=== PATIENT | female | born 1965 | race Caucasian/White ===

== ENCOUNTER → 2016-12-22 | Outpatient (CLI) | payer BC ==
--- NOTE | 2016-12-23 09:19 | MM ---
Reason for exam: screening (asymptomatic). Last mammogram was performed 1 year and 2 months ago. History: Patient is postmenopausal. Physical Findings: A clinical breast exam by your physician is recommended on an annual basis and results should be correlated with mammographic findings. MG Screening Mammo w CAD Bilateral CC and MLO view(s) were taken. Prior study comparison: October 22, 2015, bilateral MG screening mammo w CAD. September 25, 2014, bilateral MG screening mammo w CAD. September 05, 2013, bilateral digital screening mammo w/CAD. There are scattered fibroglandular densities. Finding: There are typically benign round calcifications in both breasts. There is no discrete abnormality. ASSESSMENT: Benign, BI-RAD 2 RECOMMENDATION: Routine screening mammogram of both breasts in 1 year.
== END | disposition home or self-care (01) ==
LOC: RADMAMWWP 09:25
PROVIDERS: ATTEND Obstetrics & Gynecology
DX: Z12.31 Encounter for screening mammogram for malignant neoplasm of breast (principal)

== ENCOUNTER → 2017-02-22 | Outpatient (CLI) | payer BC ==
--- NOTE | 2017-02-22 11:03 | XR ---
EXAMINATION TYPE: XR lumbar spine 2 or 3V DATE OF EXAM: 02/22/2017 CLINICAL HISTORY: Bilateral lower extremity paresthesias and back pain. TECHNIQUE: Frontal and lateral images of the lumbar spine were obtained COMPARISON: None FINDINGS: There are 5 lumbar type vertebral bodies identified. Facet arthropathy is seen bilaterall y at L3-L4, L4-5, and greatest at L5-S1. Although oblique images were not obtained there appears to b e at least mild neural foraminal narrowing L4-L5 and L5-S1 on the lateral image. Small anterior osteo phytes are noted. Calcific atheromatous changes are seen of the abdominal aorta and its branches. Mild anterior downsloping of the T12 and L1 vertebral bodies is thought to be attributed to patient p ositioning and angulation. Minimal intervertebral disc space narrowing is seen at L1-L2 and L2-L3. T he overlying soft tissue appears unremarkable. IMPRESSION: Multilevel facet arthropathy creating at least mild bilateral neural foraminal narrowing at L3-L4 and L4-5.
== END | disposition home or self-care (01) ==
LOC: RADXRMAIN 09:05
PROVIDERS: ATTEND Family Medicine
DX: M99.73 Connective tissue and disc stenosis of intervertebral foramina of lumbar region (principal); M46.06 Spinal enthesopathy, lumbar region
CPT/HCPCS: 72100

== ENCOUNTER → 2018-02-03 | Outpatient (CLI) | payer BC ==
--- NOTE | 2018-02-09 09:58 | MM ---
Reason for exam: screening (asymptomatic). Last mammogram was performed 1 year and 1 month ago. History: Patient is postmenopausal. Physical Findings: A clinical breast exam by your physician is recommended on an annual basis and results should be correlated with mammographic findings. MG Screening Mammo w CAD Bilateral CC and MLO view(s) were taken. Prior study comparison: December 22, 2016, bilateral MG screening mammo w CAD. October 22, 2015, bilateral MG screening mammo w CAD. There are scattered fibroglandular densities. There is chronic nodularity in the right breast. No significant changes when compared with prior studies. ASSESSMENT: Benign, BI-RAD 2 RECOMMENDATION: Routine screening mammogram of both breasts in 1 year.
== END | disposition home or self-care (01) ==
LOC: RADMAMWWP 14:42
PROVIDERS: ATTEND Obstetrics & Gynecology
DX: Z12.31 Encounter for screening mammogram for malignant neoplasm of breast (principal)
CPT/HCPCS: 77067

== ENCOUNTER → 2019-08-08 | Outpatient (CLI) | payer OTHER ==
--- NOTE | 2019-08-09 13:50 | MM ---
Reason for exam: screening (asymptomatic). Last mammogram was performed 1 year and 6 months ago. History: Patient is postmenopausal. Physical Findings: A clinical breast exam by your physician is recommended on an annual basis and results should be correlated with mammographic findings. MG Screening Mammo w CAD Bilateral CC and MLO view(s) were taken. Prior study comparison: February 03, 2018, bilateral MG screening mammo w CAD. December 22, 2016, bilateral MG screening mammo w CAD. There are scattered fibroglandular densities. Benign appearing bilateral calcifications. No suspicious abnormality. No significant changes when compared with prior studies. ASSESSMENT: Negative, BI-RAD 1 RECOMMENDATION: Routine screening mammogram of both breasts in 1 year.
== END | disposition home or self-care (01) ==
LOC: RADMAMWWP 10:46
PROVIDERS: ATTEND Obstetrics & Gynecology
DX: Z12.31 Encounter for screening mammogram for malignant neoplasm of breast (principal)
CPT/HCPCS: 77067

== ENCOUNTER 2020-06-20 08:13 | Emergency (ER) | payer OTHER ==
[2020-06-20 08:22] VITALS: RESP 18
[2020-06-20] MEDS ORDERED: ASPIRIN 81 MG PO STA (08:30)
[2020-06-20] MEDS ORDERED: NITROGLYCERIN SL TABS 0.4 MG TAB SUBLINGUAL STA ×2 (08:30→09:12)
--- NOTE | 2020-06-20 08:36 | ED ---
Chest Pain HPI - General Chief Complaint: Chest Pain Stated Complaint: Chest pressure Time Seen by Provider: 06/20/20 08:19 Source: patient, RN notes reviewed Mode of arrival: ambulatory Limitations: no limitations - History of Present Illness Initial Comments: This is a 54-year-old female with a history of anxiety hypertension hypercholesterolemia, history of cardiac ablation for arrhythmia, cholecystectomy in the past, family history of heart disease states she had the onset last evening of retrosternal chest pressure. She states it is intermitte nt At times as severe as 9-10/10 currently 5/10 that nothing makes it better nothing makes it worse she states she had an upper respiratory type infection a few weeks ago she still has sinus drainage with postnasal drip and occasional cough she denies any fevers chills nausea vomiting sweats she is a smoker. She states she has been anxious her recently pancreatic cancer. MD Complaint: chest pain - Related Data Home Medications Medication Instructions Recorded Confirmed Acetaminophen [Tylenol] 1,000 mg PO Q4-6H PRN 02/05/15 06/20/20 Cyanocobalamin [Vitamin B-12] 500 mcg PO DAILY 02/05/15 06/20/20 Atorvastatin Calcium [Lipitor] 20 mg PO HS 06/20/20 06/20/20 Multivitamins, Thera [Multivitamin 1 tab PO DAILY 06/20/20 06/20/20 (formulary)] Terbinafine [LamISIL] 250 mg PO DAILY 06/20/20 06/20/20 Venlafaxine HCl ER [Effexor XR] 75 mg PO DAILY 06/20/20 06/20/20 Vitamin B Complex 1 tab PO DAILY 06/20/20 06/20/20 Previous Rx's Medication Instructions Recorded Ibuprofen 800 mg PO Q6HR PRN #20 tablet 06/20/20 Orphenadrine [Norflex] 100 mg PO Q12H #7 tablet.er 06/20/20 Allergies Allergy/AdvReac Type Severity Reaction Status Date / Time No Known Allergies Allergy Verified 06/20/20 08:59 Review of Systems ROS Statement: Those systems with pertinent positive or pertinent negative responses have been documented in the HPI. ROS Other: All systems not noted in ROS Statement are negative. EKG Findings - EKG Results: EKG: interpreted by [facility], sinus rhythm (Sinus tachycardia rate of 103. Interval 170 QRS duration 76 QT since QTC 342/448 evidence a low voltage poor R-wave progression noted. No acute ST T-wave changes seen) Past Medical History Past Medical History: Hyperlipidemia Additional Past Medical History / Comment(s): VARICOSE VEINS. CHOLECYSTITIS. History of Any Multi-Drug Resistant Organisms: None Reported Past Surgical History: Section, Tubal Ligation, Uterine Ablation Additional Past Surgical History / Comment(s): heart ablation Past Anesthesia/Blood Transfusion Reactions: No Reported Reaction Past Psychological History: Anxiety Smoking Status: Current every day smoker Past Alcohol Use History: Rare Past Drug Use History: None Reported - Past Family History Mother Family Medical History: No Reported History General Exam - General Exam Comments Initial Comments: This is a well-developed well-nourished female who is awake alert oriented 3 Limitations: no limitations General appearance: alert, anxious Head exam: Present: atraumatic, normocephalic, normal inspection Eye exam: Present: normal appearance, PERRL, EOMI. Absent: scleral icterus, conjunctival injection, periorbital swelling ENT exam: Present: normal exam, mucous membranes moist Neck exam: Present: normal inspection, full ROM, other. Absent: tenderness, meningismus, lymphadenopathy Respiratory exam: Present: normal lung sounds bilaterally. Absent: respiratory distress, wheezes, rales, rhonchi, stridor, chest wall tenderness (Genitourinary bruits) Cardiovascular Exam: Present: regular rate, normal rhythm, normal heart sounds. Absent: systolic murmur, diastolic murmur, rubs, gallop, clicks GI/Abdominal exam: Present: soft, normal bowel sounds. Absent: distended, tenderness, guarding, rebound, rigid Extremities exam: Present: normal inspection, full ROM, normal capillary refill. Absent: tenderness, pedal edema, joint swelling, calf tenderness Back exam: Present: normal inspection Neurological exam: Present: alert, oriented X3, CN II-XII intact Psychiatric exam: Present: normal affect, normal mood Skin exam: Present: warm, dry, intact, normal color. Absent: rash Course Vital Signs 06/20/20 06/20/20 06/20/20 08:17 09:18 10:00 Temperature 98.2 F Pulse Rate 98 90 86 Respiratory 18 18 18 Rate Blood Pressure 123/78 118/69 100/56 O2 Sat by Pulse 97 96 98 Oximetry 06/20/20 11:35 Temperature Pulse Rate 89 Respiratory 18 Rate Blood Pressure 129/78 O2 Sat by Pulse 98 Oximetry Chest Pain MDM - MDM I did review the imaging and report no acute findings I did do multiple evaluations the patient she is getting some improvement after medications rendered. She also get improvement after the inhaler treatment. This is likely chest wall pain costochondritic in origin also some bronchospasm. We did discuss smoking cessation. She'll be discharged with appropriate medication prescriptions. She is follow-up with her doctor and return when necessary Disposition Clinical Impression: Chest wall syndrome, Costochondritis, Acute bronchospasm Disposition: HOME SELF-CARE Condition: Good Instructions (If sedation given, give patient instructions): Costochondritis (ED), Bronchospasm (ED) Additional Instructions: 2 puff The Inhaler Every 6 Hours As Needed Prescriptions: Ibuprofen 800 mg PO Q6HR PRN #20 tablet PRN Reason: Pain Orphenadrine [Norflex] 100 mg PO Q12H #7 tablet.er Is patient prescribed a controlled substance at d/c from ED?: No Referrals: Bandar Bermudez DO [Primary Care Provider] - 1-2 days
[2020-06-20 08:49] LABS: Basophils # (A) 0.1 k/uL (0-0.2); Basophils % (A) 1 %; Eosinophils # (A) 0.2 k/uL (0-0.7); Eosinophils % (A) 2 %; HCT 42.8 % (34.0-46.0); HGB 14.6 gm/dL (11.4-16.0); Lymphocytes # (A) 3.1 k/uL (1.0-4.8); Lymphocytes % (A) 32 %; MCH 30.4 pg (25.0-35.0); MCHC 34.2 g/dL (31.0-37.0); Mean Platelet Volume 6.8; Monocytes # (A) 0.4 k/uL (0-1.0); Monocytes % (A) 4 %; Neutrophils # (A) 5.8 k/uL (1.3-7.7); Neutrophils % (A) 60 %; Platelet Count 219 k/uL (150-450); RBC 4.81 m/uL (3.80-5.40); WBC 9.7 k/uL (3.8-10.6)
[2020-06-20 08:57] LABS: ALT 32 U/L (4-34); AST 25 U/L (14-36); African American GFR (CKD) >90 (>60 ml/min/1.73 sqM); Albumin 4.1 g/dL (3.5-5.0); Alkaline Phosphatase 121 U/L (38-126); Anion Gap 4 mmol/L; Blood Urea Nitrogen 15 mg/dL (7-17); Calcium 9.3 mg/dL (8.4-10.2); Carbon Dioxide 26 mmol/L (22-30); Chloride 109 mmol/L (98-107); Creatine Kinase 86 U/L (30-135); Glucose 115 mg/dL (74-99); Magnesium 1.8 mg/dL (1.6-2.3); Non-African American GFR(CKD) >90 (>60 ml/min/1.73 sqM); Potassium 4.1 mmol/L (3.5-5.1); Sodium 139 mmol/L (137-145); Total Bilirubin 0.4 mg/dL (0.2-1.3); Total Protein 6.8 g/dL (6.3-8.2)
[2020-06-20 09:06] LABS: D-Dimer 0.25 mg/L FEU (<0.60); INR 0.9 (<1.2); Partial Thromboplastin Time 23.9 sec (22.0-30.0); Prothrombin Time 9.4 sec (9.0-12.0)
--- NOTE | 2020-06-20 09:10 | XR ---
EXAMINATION TYPE: XR chest 2V DATE OF EXAM: 06/20/2020 COMPARISON: Chest x-ray November 12, 2012 HISTORY: Chest pressure and pain for 4 days. TECHNIQUE: Frontal and lateral views of the chest are obtained. FINDINGS: There is no new suspicious focal air space opacity, pleural effusion, or pneumothorax seen . The cardiac silhouette size remains within normal limits. The osseous structures are intact. Ove rlying EKG leads redemonstrated. IMPRESSION: No acute cardiopulmonary process. No significant change from prior.
[2020-06-20] MEDS ORDERED: KETOROLAC 15 MG/ML 1 ML VIAL IVP STA (09:47)
[2020-06-20] MEDS ORDERED: ORPHENADRINE 30 MG/ML 2 ML VIAL IVP STA (09:48)
[2020-06-20] MEDS ORDERED: ALBUTEROL HFA INHALER INHALATION STA (10:32)
[2020-06-20 12:35] VITALS: BP 115/65; PULSE 87; TEMP 97.3
== END 2020-06-20 12:35 | disposition home or self-care (01) ==
LOC: EC 08:13
DX: J98.01 Acute bronchospasm (principal); M94.0 Chondrocostal junction syndrome [Tietze]; E78.5 Hyperlipidemia, unspecified; F41.9 Anxiety disorder, unspecified; F17.200 Nicotine dependence, unspecified, uncomplicated; Z79.899 Other long term (current) drug therapy
CPT/HCPCS: 36415; 94640; 93005; 85379; 80053; 82550; 83735; 84484; 85025; 85610; 85730; 71046; 99285; 96374; 96375; J2360; J1885

== ENCOUNTER → 2020-09-24 | Outpatient (CLI) | payer OTHER ==
--- NOTE | 2020-09-25 10:25 | MM ---
Reason for exam: screening (asymptomatic). Last mammogram was performed 1 year and 2 months ago. History: Patient is postmenopausal. Physical Findings: A clinical breast exam by your physician is recommended on an annual basis and results should be correlated with mammographic findings. MG Screening Mammo w CAD Bilateral CC, MLO, and XCCL view(s) were taken. Prior study comparison: August 08, 2019, bilateral MG screening mammo w CAD. February 03, 2018, bilateral MG screening mammo w CAD. There are scattered fibroglandular densities. There are benign appearing round calcifications bilaterally. There is chronic nodularity in the right breast. Asymmetric breast tissue left upper breast, stable. There is no discrete abnormality. ASSESSMENT: Benign, BI-RAD 2 RECOMMENDATION: Routine screening mammogram of both breasts in 1 year.
== END | disposition home or self-care (01) ==
LOC: RADMAMWWP 10:42
PROVIDERS: ATTEND Obstetrics & Gynecology
DX: Z12.31 Encounter for screening mammogram for malignant neoplasm of breast (principal)
CPT/HCPCS: 77067

== ENCOUNTER → 2021-10-02 | Outpatient (CLI) | payer OTHER ==
--- NOTE | 2021-10-03 13:54 | MM ---
Reason for exam: screening (asymptomatic). Last mammogram was performed 1 year ago. History: Patient is postmenopausal. Physical Findings: A clinical breast exam by your physician is recommended on an annual basis and results should be correlated with mammographic findings. MG Screening Mammo w CAD Bilateral CC and MLO view(s) were taken. Prior study comparison: September 24, 2020, bilateral MG screening mammo w CAD. August 08, 2019, bilateral MG screening mammo w CAD. There are scattered fibroglandular densities. There is chronic nodularity bilaterally. No significant changes when compared with prior studies. ASSESSMENT: Benign, BI-RAD 2 RECOMMENDATION: Routine screening mammogram of both breasts in 1 year.
== END | disposition home or self-care (01) ==
LOC: RADMAMWWP 16:36
PROVIDERS: ATTEND Obstetrics & Gynecology
DX: Z12.31 Encounter for screening mammogram for malignant neoplasm of breast (principal); Z78.0 Asymptomatic menopausal state
CPT/HCPCS: 77067

== ENCOUNTER → 2022-01-01 | Outpatient (CLI) | payer OTHER ==
--- NOTE | 2022-01-01 10:52 | XR ---
EXAMINATION TYPE: XR chest 2V DATE OF EXAM: 01/01/2022 COMPARISON: 07/21/2021 TECHNIQUE: PA and lateral views submitted. HISTORY: Chest pain FINDINGS: The lungs are clear and there is no pneumothorax, pleural effusion, or focal pneumonia. Subsegmenta l change right lung base. Heart size normal. No overt failure. Biapical pleural thickening. Hypertrop hic and degenerative changes of the spine. Hyperinflation suggests COPD. IMPRESSION: 1. Right basilar subsegmental atelectasis or early infiltrate.
== END | disposition home or self-care (01) ==
LOC: RADXRMAIN 10:23
PROVIDERS: ATTEND Family Medicine
DX: J98.11 Atelectasis (principal)
CPT/HCPCS: 71046

== ENCOUNTER 2022-07-13 10:15 | Inpatient (IN) | payer OTHER ==
[2022-07-13] MEDS ORDERED: DILTIAZEM DRIP BOLUS FROM BAG 1 MG SOLN IV ONE (10:43)
[2022-07-13] MEDS ORDERED: HEPARIN SODIUM 1,000 UN/ML (10ML VL) IV ONE (10:43)
[2022-07-13] MEDS ORDERED: DILTIAZEM 125 MG in SODIUM CHLORIDE 0.9% 100 ML IV SCH (10:45)
--- NOTE | 2022-07-13 10:47 | ED ---
General Adult HPI - General Chief complaint: Arrhythmia/Palpitations Stated complaint: Tachycardia Time Seen by Provider: 07/13/22 10:38 Source: patient Mode of arrival: ambulatory Limitations: no limitations - History of Present Illness Initial comments: Dictation was produced using [employer] dictation software. please excuse any grammatical, word or spelling errors. Chief Complaint: 56-year-old female presents emergency department for palpitations History of Present Illness: 56-year-old female with past medical history of cardiac ablation presents to the ER for several hours of palpitations. Patient has not seen a [facility] dealer since several months. She is history of ablation performed several months ago. She lost her insurance and has not had good follow-up. Finally patient felt fine however several minutes after waking up she started to feel palpitations. Denies any chest pain she does have some mild shortness of breath. No numbness and paresthesias to arms or legs. The ROS documented in this emergency department record has been reviewed and confirmed by me. Those systems with pertinent positive or negative responses have been documented in the HPI. All other systems are other negative and/or noncontributory. PHYSICAL EXAM: General Impression: Alert and oriented x3, not in acute distress HEENT: Normocephalic atraumatic, extra-ocular movements intact, pupils equal and reactive to light bilaterally, mucous membranes moist. Cardiovascular: Tachycardic Chest: Able to complete full sentences, no retractions, no tachypnea Abdomen: abdomen soft, non-tender, non-distended, no organomegaly Musculoskeletal: Pulses present and equal in all extremities, no peripheral edema Motor: no focal deficits noted Neurological: CN II-XII grossly intact, no focal motor or sensory deficits noted Skin: Intact with no visualized rashes Psych: Normal affect and mood ED course: 48-year-old female past medical history of cardiac ablation presents to the ER for palpitations for several hours. Vital signs upon arrival shows heart rate of 140, worse vital signs within acceptable limits. EKG shows atrial flutter. Patient started on Cardizem and heparin Nursing notes and chart review was performed EKG interpreted by me: Ventricular rate 137, atrial flutter, QRS 66, QTC 3-4. No no QTC prolongation, no ST or T-wave changes noted. Laboratory evaluation obtained. CBC, coag panel metabolic panel is unremarkable. Troponins negative. Chest x-ray is nonacute. Patient heart rate is improved. Patient be admitted with consultation to cardiology. Admitted to [facility] hospitalist group. Was pt. sent in by a medical professional or institution? @No Did you speak to anyone other than the patient for history? @No Did you review nursing and triage notes? @Yes, grade Were old charts reviewed? @No Differential Diagnosis? @ Atrial flutter, ventricular tachycardia, Torsades, multifocal atrial tachycardia EKG interpreted by me (3pts min.)? @Yes, see above X-rays interpreted by me (1pt min.)? @Yes, unremarkable CT interpreted by me (1pt min.)? @ [none] U/S interpreted by me (1pt. min.)? @ [none] What testing was considered but not performed? (CT, X-rays, U/S, labs)? Why? @No What meds were considered but not given? Why? @Amiodarone was considered however patient's blood pressure would tolerate Cardizem Did you discuss the management of the patient with other professionals? @Yes, discussed case with hospitalist Did you reconcile home meds? @Yes Was smoking cessation discussed for >3mins.? @ [none] Was critical care preformed (if so, how long)? @ [none] Were there social determinants of health that impacted care today? How? (Homelessness, low income, unemployed, alcoholism, drug addiction, transportation, low edu. Level, literacy, decrease access to med. care, snf, re hab)? @Yes, lack of insurance and access to outpatient care Was there de-escalation of care discussed even if they declined? (Discuss DNR or withdrawal of care, Hospice)? @None What co-morbidities impacted this encounter? (DM, HTN, Smoking, COPD, CAD, Cancer, CVA, Hep., AIDS, mental health diagnosis, sleep apnea, morbid obesity)? @History of cardiac ablation with a recurrence Was patient admitted / discharged? @Admitted Undiagnosed new problem with uncertain prognosis? @ [none] Drug Therapy requiring intensive monitoring for toxicity (Heparin, Nitro, Insulin, Cardizem)? @Yes, Cardizem and heparin Were any procedures done? @ [none] Diagnosis/symptom? @Atrial flutter/fibrillation with rapid ventricular rate Acute, or Chronic, or Acute on Chronic? @Acute on chronic, recurrence Uncomplicated (without systemic symptoms) or Complicated (systemic symptoms)? @Uncomplicated Side effects of treatment? @ [none] Exacerbation, Progression, or Severe Exacerbation] @ [no] Poses a threat to life or bodily function? @ yes - Related Data Home Medications Medication Instructions Recorded Confirmed Atorvastatin Calcium [Lipitor] 20 mg PO HS 06/20/20 07/13/22 Multivitamins, Thera [Multivitamin 1 tab PO DAILY 06/20/20 07/13/22 (formulary)] Vitamin B Complex 1 tab PO DAILY 06/20/20 07/13/22 ALPRAZolam [Xanax] 0.25 mg PO TID PRN 07/13/22 07/13/22 Cholecalciferol [Vitamin D3 (25 25 mcg PO DAILY 07/13/22 07/13/22 Mcg = 1000 Iu)] Omeprazole 40 mg PO W/BRKFST 07/13/22 07/13/22 Venlafaxine HCl ER [Effexor Xr] 150 mg PO DAILY 07/13/22 07/13/22 Zinc Gluconate [Zinc] 50 mg PO DAILY 07/13/22 07/13/22 Allergies Allergy/AdvReac Type Severity Reaction Status Date / Time No Known Allergies Allergy Verified 07/13/22 11:35 Review of Systems ROS Statement: Those systems with pertinent positive or pertinent negative responses have been documented in the HPI. ROS Other: All systems not noted in ROS Statement are negative. Past Medical History Past Medical History: Hyperlipidemia Additional Past Medical History / Comment(s): VARICOSE VEINS. CHOLECYSTITIS. History of Any Multi-Drug Resistant Organisms: None Reported Past Surgical History: Section, Tubal Ligation, Uterine Ablation Additional Past Surgical History / Comment(s): heart ablation Past Anesthesia/Blood Transfusion Reactions: No Reported Reaction Past Psychological History: Anxiety Smoking Status: Current every day smoker Past Alcohol Use History: Rare Past Drug Use History: None Reported - Past Family History Mother Family Medical History: No Reported History General Exam Limitations: no limitations Course Vital Signs 07/13/22 07/13/22 10:22 11:08 Temperature 98.5 F Pulse Rate 140 H 144 H Respiratory 22 18 Rate Blood Pressure 118/83 115/72 O2 Sat by Pulse 99 98 Oximetry Medical Decision Making - Lab Data Result diagrams: 07/13/22 10:50 07/13/22 10:50 Lab Results 0107/13/22 07/13/22 Range/Units 10:50 10:50 10:50 WBC 9.0 (3.8-10.6) k/uL RBC 5.17 (3.80-5.40) m/uL Hgb 15.3 (11.4-16.0) gm/dL Hct 45.5 (34.0-46.0) % MCV 88.0 (80.0-100.0) fL MCH 29.5 (25.0-35.0) pg MCHC 33.6 (31.0-37.0) g/dL RDW 13.1 (11.5-15.5) % Plt Count 221 (150-450) k/uL MPV 7.9 Neutrophils % 69 % Lymphocytes % 23 % Monocytes % 4 % Eosinophils % 1 % Basophils % 1 % Neutrophils # 6.2 (1.3-7.7) k/uL Lymphocytes # 2.1 (1.0-4.8) k/uL Monocytes # 0.4 (0-1.0) k/uL Eosinophils # 0.1 (0-0.7) k/uL Basophils # 0.1 (0-0.2) k/uL PT 9.9 (9.0-12.0) sec INR 0.9 (<1.2) APTT 23.9 (22.0-30.0) sec Sodium 143 (137-145) mmol/L Potassium 4.1 (3.5-5.1) mmol/L Chloride 110 H (98-107) mmol/L Carbon Dioxide 25 (22-30) mmol/L Anion Gap 8 mmol/L BUN 17 (7-17) mg/dL Creatinine 0.60 (0.52-1.04) mg/dL Est GFR (CKD-EPI)AfAm >90 (>60 ml/min/1.73 sqM) Est GFR (CKD-EPI)NonAf >90 (>60 ml/min/1.73 sqM) Glucose 113 H (74-99) mg/dL Calcium 9.5 (8.4-10.2) mg/dL Magnesium 2.0 (1.6-2.3) mg/dL Total Bilirubin 0.5 (0.2-1.3) mg/dL AST 30 (14-36) U/L ALT 37 H (4-34) U/L Alkaline Phosphatase 133 H (38-126) U/L Troponin I (0.000-0.034) ng/mL Total Protein 7.1 (6.3-8.2) g/dL Albumin 4.3 (3.5-5.0) g/dL 07/13/22 Range/Units 10:50 WBC (3.8-10.6) k/uL RBC (3.80-5.40) m/uL Hgb (11.4-16.0) gm/dL Hct (34.0-46.0) % MCV (80.0-100.0) fL MCH (25.0-35.0) pg MCHC (31.0-37.0) g/dL RDW (11.5-15.5) % Plt Count (150-450) k/uL MPV Neutrophils % % Lymphocytes % % Monocytes % % Eosinophils % % Basophils % % Neutrophils # (1.3-7.7) k/uL Lymphocytes # (1.0-4.8) k/uL Monocytes # (0-1.0) k/uL Eosinophils # (0-0.7) k/uL Basophils # (0-0.2) k/uL PT (9.0-12.0) sec INR (<1.2) APTT (22.0-30.0) sec Sodium (137-145) mmol/L Potassium (3.5-5.1) mmol/L Chloride (98-107) mmol/L Carbon Dioxide (22-30) mmol/L Anion Gap mmol/L BUN (7-17) mg/dL Creatinine (0.52-1.04) mg/dL Est GFR (CKD-EPI)AfAm (>60 ml/min/1.73 sqM) Est GFR (CKD-EPI)NonAf (>60 ml/min/1.73 sqM) Glucose (74-99) mg/dL Calcium (8.4-10.2) mg/dL Magnesium (1.6-2.3) mg/dL Total Bilirubin (0.2-1.3) mg/dL AST (14-36) U/L ALT (4-34) U/L Alkaline Phosphatase (38-126) U/L Troponin I <0.012 (0.000-0.034) ng/mL Total Protein (6.3-8.2) g/dL Albumin (3.5-5.0) g/dL Disposition Clinical Impression: Atrial flutter Disposition: ADMITTED IP TO THIS HOSP Condition: Serious Referrals: Bandar Bermudez DO [Primary Care Provider] - 1-2 days Decision Time: 12:37
[2022-07-13 11:12] LABS: Basophils # (A) 0.1 k/uL (0-0.2); Basophils % (A) 1 %; Eosinophils # (A) 0.1 k/uL (0-0.7); Eosinophils % (A) 1 %; HCT 45.5 % (34.0-46.0); HGB 15.3 gm/dL (11.4-16.0); Lymphocytes # (A) 2.1 k/uL (1.0-4.8); Lymphocytes % (A) 23 %; MCH 29.5 pg (25.0-35.0); MCHC 33.6 g/dL (31.0-37.0); Mean Platelet Volume 7.9; Monocytes # (A) 0.4 k/uL (0-1.0); Monocytes % (A) 4 %; Neutrophils # (A) 6.2 k/uL (1.3-7.7); Neutrophils % (A) 69 %; Platelet Count 221 k/uL (150-450); RBC 5.17 m/uL (3.80-5.40); RDW 13.1 % (11.5-15.5)
[2022-07-13 11:21] LABS: ALT 37 U/L (4-34); AST 30 U/L (14-36); African American GFR (CKD) >90 (>60 ml/min/1.73 sqM); Albumin 4.3 g/dL (3.5-5.0); Alkaline Phosphatase 133 U/L (38-126); Anion Gap 8 mmol/L; Blood Urea Nitrogen 17 mg/dL (7-17); Calcium 9.5 mg/dL (8.4-10.2); Carbon Dioxide 25 mmol/L (22-30); Chloride 110 mmol/L (98-107); Glucose 113 mg/dL (74-99); Non-African American GFR(CKD) >90 (>60 ml/min/1.73 sqM); Potassium 4.1 mmol/L (3.5-5.1); Sodium 143 mmol/L (137-145); Total Bilirubin 0.5 mg/dL (0.2-1.3); Total Protein 7.1 g/dL (6.3-8.2)
[2022-07-13 11:23] LABS: INR 0.9 (<1.2); Partial Thromboplastin Time 23.9 sec (22.0-30.0); Prothrombin Time 9.9 sec (9.0-12.0)
[2022-07-13] MEDS: HEPARIN SOD,PORK IN 0.45% NACL 25,000 UNIT in 0.45% NACL 1 250ML.BAG IV SCH (11:41)
--- NOTE | 2022-07-13 11:41 | XR ---
EXAMINATION TYPE: XR chest 2V DATE OF EXAM: 07/13/2022 COMPARISON: 12/31/2021 HISTORY: 56-year-old female with dysrhythmia, tach Cardia TECHNIQUE: PA and lateral views FINDINGS: Heart normal size. Aorta and pulmonary vascularity within normal limits. Pulmonary vasculature within normal limits. No consolidation or pleural effusion. IMPRESSION: No acute cardiopulmonary process.
[2022-07-13] MEDS ORDERED: NALOXONE 0.4 MG/ML 1 ML VIAL IV PRN (12:29)
[2022-07-13] MEDS ORDERED: SODIUM CHLORIDE 0.9% 1,000 ML IV SCH (12:30)
[2022-07-13] MEDS ORDERED: ALPRAZolam 0.25 MG TAB PO PRN (12:34)
[2022-07-13 17:41] LABS: INR 0.9 (<1.2); Partial Thromboplastin Time 31.7 sec (22.0-30.0); Prothrombin Time 10.1 sec (9.0-12.0)
--- NOTE | 2022-07-13 17:45 | P.HPIM ---
History of Present Illness H&P Date: 07/13/22 Chief Complaint: Palpitations 56-year-old female with past medical history of cardiac ablation presents to the ER for several hours of palpitations. Patient has not seen a edging machine catcher since several months. She is history of ablation performed several months ago. She lost her insurance and has not had good follow-up. Finally patient felt fine however several minutes after waking up she started to feel palpitations. Denies any chest pain she does have some mild shortness of breath. No numbness and paresthesias to arms or legs. EKG interpreted by me: Ventricular rate 137, atrial flutter, QRS 66, QTC 3-4. No no QTC prolongation, no ST or T-wave changes noted. Laboratory evaluation obtained. CBC, coag panel metabolic panel is unremarkable. Troponins negative. Chest x-ray is non acute. Patient heart rate is improved. Patient be admitted with consultation to cardiology. Review of Systems General Impression: Alert and oriented x3, not in acute distress HEENT: Normocephalic atraumatic, extra-ocular movements intact, pupils equal and reactive to light bilaterally, mucous membranes moist. Cardiovascular: Tachycardic Chest: Able to complete full sentences, no retractions, no tachypnea Abdomen: abdomen soft, non-tender, non-distended, no organomegaly Musculoskeletal: Pulses present and equal in all extremities, no peripheral edema Motor: no focal deficits noted Neurological: CN II-XII grossly intact, no focal motor or sensory deficits noted Skin: Intact with no visualized rashes Psych: Normal affect and mood Past Medical History Past Medical History: Hyperlipidemia Additional Past Medical History / Comment(s): VARICOSE VEINS. CHOLECYSTITIS. History of Any Multi-Drug Resistant Organisms: None Reported Past Surgical History: Section, Tubal Ligation, Uterine Ablation Additional Past Surgical History / Comment(s): heart ablation Past Anesthesia/Blood Transfusion Reactions: No Reported Reaction Past Psychological History: Anxiety Smoking Status: Current every day smoker Past Alcohol Use History: Rare Past Drug Use History: None Reported - Past Family History Mother Family Medical History: No Reported History Medications and Allergies Home Medications Medication Instructions Recorded Confirmed Type Atorvastatin Calcium [Lipitor] 20 mg PO HS 06/20/20 07/13/22 History Multivitamins, Thera [Multivitamin 1 tab PO DAILY 06/20/20 07/13/22 History (formulary)] Vitamin B Complex 1 tab PO DAILY 06/20/20 07/13/22 History ALPRAZolam [Xanax] 0.25 mg PO TID PRN 07/13/22 07/13/22 History Cholecalciferol [Vitamin D3 (25 25 mcg PO DAILY 07/13/22 07/13/22 History Mcg = 1000 Iu)] Omeprazole 40 mg PO W/BRKFST 07/13/22 07/13/22 History Venlafaxine HCl ER [Effexor Xr] 150 mg PO DAILY 07/13/22 07/13/22 History Zinc Gluconate [Zinc] 50 mg PO DAILY 07/13/22 07/13/22 History Allergies Allergy/AdvReac Type Severity Reaction Status Date / Time No Known Allergies Allergy Verified 07/13/22 11:35 Physical Exam Vitals: Vital Signs Temp Pulse Resp BP Pulse Ox 07/13/22 12:57 77 18 143/81 97 07/13/22 11:08 144 H 18 115/72 98 07/13/22 10:22 98.5 F 140 H 22 118/83 99 Intake and Output 07/12/22 07/13/22 07/13/22 22:59 06:59 14:59 Other: Weight 113.398 kg General Impression: Alert and oriented x3, not in acute distress HEENT: Normocephalic atraumatic, extra-ocular movements intact, pupils equal and reactive to light bilaterally, mucous membranes moist. Cardiovascular: Tachycardic Chest: Able to complete full sentences, no retractions, no tachypnea Abdomen: abdomen soft, non-tender, non-distended, no organomegaly Musculoskeletal: Pulses present and equal in all extremities, no peripheral edema Motor: no focal deficits noted Neurological: CN II-XII grossly intact, no focal motor or sensory deficits noted Skin: Intact with no visualized rashes Psych: Normal affect and mood Results CBC & Chem 7: 07/13/22 10:50 07/13/22 10:50 Labs: Abnormal Lab Results - Last 24 Hours (Table) 07/13/22 Range/Units 10:50 Chloride 110 H (98-107) mmol/L Glucose 113 H (74-99) mg/dL ALT 37 H (4-34) U/L Alkaline Phosphatase 133 H (38-126) U/L Assessment and Plan Assessment: 1. Palpitations; new onset atrial flutter - Patient has been placed on IV Cardizem and is going to be admitted to cardiac telemetry with plans to monitor EKG and trend troponin; patient remains on IV Cardizem infusion and awaits cardiology evaluation and recommendations we will monitor EKG and trend troponin; obtain 2-D echo; continue with IV heparin infusion - Further recommendations once patient is evaluated by cardiology 2. Uncontrolled hypertension; patient does not have any formal diagnosis of hypertension and is currently not on any treatment; on Cardizem. The titrate to control heart rate; we will continue with Cardizem and monitor blood pressure closely once patient is transitioned to oral rate control medication 3. Hyperlipidemia; continue with home statin therapy 4. Anxiety/depression; Effexor XR 150 mg daily along with Xanax 0.25 mg 3 times a day 5. Gastroesophageal reflux disease; omeprazole 40 mg daily DVT prophylaxis; SCDs/IV heparin CODE STATUS; full code
[2022-07-13] MEDS ORDERED: ATORVASTATIN 20 MG TAB PO SCH (21:00)
[2022-07-14] MEDS: HEPARIN SOD,PORK IN 0.45% NACL 25,000 UNIT in 0.45% NACL 1 250ML.BAG IV SCH (05:19)
[2022-07-14] MEDS ORDERED: PANTOPRAZOLE 40 MG TABLET PO SCH (07:30)
[2022-07-14 08:03] LABS: Basophils # (A) 0.1 k/uL (0-0.2); Basophils % (A) 1 %; Eosinophils # (A) 0.2 k/uL (0-0.7); Eosinophils % (A) 2 %; HCT 41.5 % (34.0-46.0); HGB 13.8 gm/dL (11.4-16.0); Lymphocytes # (A) 2.8 k/uL (1.0-4.8); Lymphocytes % (A) 34 %; MCH 30.1 pg (25.0-35.0); MCHC 33.1 g/dL (31.0-37.0); MCV 90.7 fL (80.0-100.0); Mean Platelet Volume 8.1; Monocytes # (A) 0.4 k/uL (0-1.0); Monocytes % (A) 5 %; Neutrophils # (A) 4.7 k/uL (1.3-7.7); Neutrophils % (A) 56 %; Platelet Count 200 k/uL (150-450); RBC 4.58 m/uL (3.80-5.40); RDW 13.1 % (11.5-15.5); WBC 8.3 k/uL (3.8-10.6)
[2022-07-14 08:18] VITALS: RESP 17
[2022-07-14] MEDS ORDERED: NON FORMULARY DRUG (Vitamin B Complex [Vitamin B Complex] 1 EACH Capsule) PO SCH (09:00)
[2022-07-14] MEDS ORDERED: MULTIVITAMINS, THERA 1 EACH TAB PO SCH (09:00)
[2022-07-14] MEDS ORDERED: VENLAFAXINE HCL ER 150 MG CAP PO SCH (09:00)
[2022-07-14] MEDS ORDERED: CHOLECALCIFEROL 25 MCG (1000 IU) TABLET PO SCH (09:00)
[2022-07-14] MEDS ORDERED: ZINC SULFATE 220 MG CAP PO SCH (09:00)
[2022-07-14 09:08] LABS: African American GFR (CKD) >90 (>60 ml/min/1.73 sqM); Anion Gap 4 mmol/L; Blood Urea Nitrogen 17 mg/dL (7-17); Calcium 8.8 mg/dL (8.4-10.2); Carbon Dioxide 30 mmol/L (22-30); Chloride 107 mmol/L (98-107); Glucose 92 mg/dL (74-99); Non-African American GFR(CKD) >90 (>60 ml/min/1.73 sqM); Sodium 141 mmol/L (137-145)
[2022-07-14] MEDS ORDERED: APIXABAN 5 MG TAB PO SCH (10:15)
[2022-07-14 11:47] VITALS: BP 142/88; PULSE 76; TEMP 97
--- NOTE | 2022-07-14 16:11 | P.CRDCN ---
History of Present Illness Consult date: 07/14/22 Consult reason: atrial flutter History of present illness: History of present illness: This is a 56 year old female with past medical history of she also has history of hyperlipidemia. Patient presented due to palpitations when she woke up in t he morning yesterday. No chest pain, mild shortness of breath was present. She did not have any syncopal episodes, no lightheadedness or dizziness. Patient presented to the emergency center and was found to be a heart rate of 140s with blood pressure 118/83. She was started on Cardizem drip and heparin drip. She has subsequently converted to a sinus rhythm running in the 70s. EKG atrial flutter at 137 bpm Troponin negative 2, potassium 4.1, magnesium 2.0. TSH 3.61 Chest x-ray reveals no acute cardiopulmonary process Home cardiac medications include atorvastatin 20 mg at bedtime Review Of Systems: Constitutional: No fever, no chills. No weakness, fatigue or lethargy. EENT: No headache. No dizziness. Lungs: No shortness of breath, cough, no sputum production. No wheezing. Cardiovascular: No chest pain, no lower extremity edema. Reports palpitations. No paroxysmal nocturnal dyspnea. No orthopnea. No lightheadedness or dizziness. No syncopal episodes. Abdominal: No abdominal pain. No nausea, vomiting. No diarrhea. No constipation. No bloody or tarry stools. No loss of appetite. Genitourinary: No dysuria.. No urinary retention. Musculoskeletal: No myalgias. No muscle weakness, no gait dysfunction, no frequent falls. No back pain. No neck pain. Integumentary: No wounds, no lesions. No rash or pruritus. No unusual bruising. Neurologic: No aphasia. No facial droop. No change in mentation. No head injury. No headache. No paralysis. No paresthesia. Psychiatric: No depression. No anxiety. Endocrine: No abnormal blood sugars. Physical examination: Gen: This is a 56-year-old morbidly obese female. She is resting in bed appears to be comfortable. VS: reviewed HEENT: Head is atraumatic, normocephalic. Pupils equal, round. Sclerae is anic teric. NECK: Supple. No JVD. No lymphadenopathy. No thyromegaly. LUNGS: Clear to auscultation. No wheezes or rhonchi. No intercostal retractions. HEART: Regular rate and rhythm. No murmur. ABDOMEN: Soft. Bowel sounds are present. No masses. No tenderness. EXTREMITIES: No pedal edema. No calf tenderness. NEUROLOGICAL: Patient is awake, alert and oriented x3. Cranial nerves 2 through 12 are grossly intact. Assessment: Atrial flutter, new onset History of paroxysmal atrial fibrillation status post ablation Hyperlipidemia Plan: Patient started on metoprolol 50 mg twice daily. Patient has been instructed to take this when she feels palpitations Patient started on eliquis 5 mg twice daily with plan to prepare her for atrial flutter ablation Patient is cleared for discharge from cardiology. Follow-up with Dr. Peoples in the office and arrangements will be made for ablation procedure. Thank you kindly for this consultation. Nurse practitioner note has been reviewed, I agree with documented findings and plan of care. Patient was seen and examined. Past Medical History Past Medical History: Hyperlipidemia Additional Past Medical History / Comment(s): VARICOSE VEINS. CHOLECYSTITIS. History of Any Multi-Drug Resistant Organisms: None Reported Past Surgical History: Section, Tubal Ligation, Uterine Ablation Additional Past Surgical History / Comment(s): heart ablation Past Anesthesia/Blood Transfusion Reactions: No Reported Reaction Past Psychological History: Anxiety Smoking Status: Current every day smoker Past Alcohol Use History: Rare Past Drug Use History: None Reported - Past Family History Mother Family Medical History: No Reported History Medications and Allergies Home Medications Medication Instructions Recorded Confirmed Type Atorvastatin Calcium [Lipitor] 20 mg PO HS 06/20/20 07/13/22 History Multivitamins, Thera [Multivitamin 1 tab PO DAILY 06/20/20 07/13/22 History (formulary)] Vitamin B Complex 1 tab PO DAILY 06/20/20 07/13/22 History ALPRAZolam [Xanax] 0.25 mg PO TID PRN 07/13/22 07/13/22 History Cholecalciferol [Vitamin D3 (25 25 mcg PO DAILY 07/13/22 07/13/22 History Mcg = 1000 Iu)] Omeprazole 40 mg PO W/BRKFST 07/13/22 07/13/22 History Venlafaxine HCl ER [Effexor XR] 150 mg PO DAILY 07/13/22 07/13/22 History Zinc Gluconate [Zinc] 50 mg PO DAILY 07/13/22 07/13/22 History Apixaban [Eliquis] 5 mg PO BID #180 tab 07/14/22 Rx Metoprolol Tartrate [Lopressor] 50 mg PO BID #60 tab 07/14/22 Rx Allergies Allergy/AdvReac Type Severity Reaction Status Date / Time No Known Allergies Allergy Verified 07/13/22 11:35 Physical Exam Vitals: Vital Signs Temp Pulse Pulse Resp BP BP Pulse Ox 07/14/22 08:10 97.2 F L 74 17 121/59 96 07/14/22 04:00 97.0 F L 73 18 120/66 98 07/14/22 02:00 74 18 07/14/22 00:00 96.0 F L 74 18 125/57 96 07/13/22 20:00 96.3 F L 74 18 126/64 97 07/13/22 17:11 97.8 F 80 16 146/84 94 L 07/13/22 16:47 98.0 F 79 18 139/88 97 07/13/22 15:00 72 18 139/68 96 07/13/22 14:18 75 18 143/84 96 07/13/22 12:57 77 18 143/81 97 07/13/22 11:08 144 H 18 115/72 98 07/13/22 10:22 98.5 F 140 H 22 118/83 99 Intake and Output 07/13/22 07/14/22 07/14/22 22:59 06:59 14:59 Intake Total 346 147.891 Balance 346 147.891 Intake: Intake, IV Titration 66 147.891 Amount Heparin Sod,Pork in 0.45% 66 147.891 NaCl 25,000 unit In 0.45 % NaCl 1 250ml.bag @ 8. 8185 UNITS/KG/HR 10 mls/ hr IV .Q24H [facility] Rx#: [id number] Oral 280 Other: Voiding Method Toilet Toilet Weight 113.398 kg Results 07/14/22 06:57 07/14/22 06:57 Cardiac Enzymes 07/13/22 07/13/22 07/13/22 Range/Units 10:50 10:50 16:11 AST 30 (14-36) U/L Troponin I <0.012 <0.012 (0.000-0.034) ng/mL Coagulation 07/13/22 07/13/22 07/14/22 Range/Units 10:50 17:21 00:49 PT 9.9 10.1 (9.0-12.0) sec APTT 23.9 31.7 H 44.5 H (22.0-30.0) sec 07/14/22 Range/Units 06:57 PT (9.0-12.0) sec APTT 44.4 H (22.0-30.0) sec CBC 07/13/22 07/14/22 Range/Units 10:50 06:57 WBC 9.0 8.3 (3.8-10.6) k/uL RBC 5.17 4.58 (3.80-5.40) m/uL Hgb 15.3 13.8 (11.4-16.0) gm/dL Hct 45.5 41.5 (34.0-46.0) % Plt Count 221 200 (150-450) k/uL Comprehensive Metabolic Panel 07/13/22 Range/Units 10:50 Sodium 143 (137-145) mmol/L Potassium 4.1 (3.5-5.1) mmol/L Chloride 110 H (98-107) mmol/L Carbon Dioxide 25 (22-30) mmol/L BUN 17 (7-17) mg/dL Creatinine 0.60 (0.52-1.04) mg/dL Glucose 113 H (74-99) mg/dL Calcium 9.5 (8.4-10.2) mg/dL AST 30 (14-36) U/L ALT 37 H (4-34) U/L Alkaline Phosphatase 133 H (38-126) U/L Total Protein 7.1 (6.3-8.2) g/dL Albumin 4.3 (3.5-5.0) g/dL Current Medications Generic Name Dose Route Start Last Admin Trade Name Freq PRN Reason Stop Dose Admin Alprazolam 0.25 mg 07/13/22 12:34 Alprazolam 0.25 Mg Tab PO TID PRN Anxiety Atorvastatin Calcium 20 mg 07/13/22 21:00 07/13/22 20:37 Atorvastatin 20 Mg Tab PO 20 mg HS ALAYNA Administration Cholecalciferol 25 mcg 07/14/22 09:00 Cholecalciferol 25 Mcg (1000 Iu) Tablet PO DAILY ALAYNA Diltiazem HCl 125 mg/ Sodium 125 mls @ 5 mls/hr 07/13/22 10:45 07/13/22 14:20 Chloride IV 0 mg/hr .Q24H ALAYNA 0 mls/hr Infusion 5 MG/HR Heparin Sodium/Sodium Chloride 250 mls @ 10 mls/hr 07/13/22 10:45 07/14/22 05:19 25,000 unit/ Sodium Chloride IV 11.82 units/kg/hr .Q24H ALAYNA 13.404 mls/hr Administration Protocol 8.8185 UNITS/KG/HR Sodium Chloride 1,000 mls @ 20 mls/hr 07/13/22 12:30 07/13/22 15:06 Saline 0.9% IV 20 mls/hr .Q24H ALAYNA Administration Multivitamins 1 each 07/14/22 09:00 Multivitamins, Thera 1 Each Tab PO DAILY ALAYNA Naloxone HCl 0.2 mg 07/13/22 12:29 Naloxone 0.4 Mg/Ml 1 Ml Vial IV Q2M PRN Opioid Reversal Pantoprazole Sodium 40 mg 07/14/22 07:30 07/14/22 06:37 Pantoprazole 40 Mg Tablet PO 40 mg W/BRKFST ALAYNA Administration Venlafaxine HCl 150 mg 07/14/22 09:00 Venlafaxine Hcl Er 150 Mg Cap PO DAILY ALAYNA Zinc Sulfate 220 mg 07/14/22 09:00 Zinc Sulfate 220 Mg Cap PO DAILY ALAYNA Intake and Output 07/13/22 07/14/22 07/14/22 22:59 06:59 14:59 Intake Total 346 147.891 Balance 346 147.891 Intake: Intake, IV Titration 66 147.891 Amount Heparin Sod,Pork in 0.45% 66 147.891 NaCl 25,000 unit In 0.45 % NaCl 1 250ml.bag @ 8. 8185 UNITS/KG/HR 10 mls/ hr IV .Q24H [facility] Rx#: [id number] Oral 280 Other: Voiding Method Toilet Toilet Weight 113.398 kg 07/14/22 06:57 07/13/22 10:50
--- NOTE | 2022-07-15 21:26 | P.DS ---
Providers Date of admission: 07/13/22 12:29 Expected date of discharge: 07/14/22 Attending physician: Bandar Bermudez Consults: 07/13/22 12:29 Consult Physician Routine Consulting Provider: Joss Peoples Consult Reason/Comments: atrial flutter Do you want consulting provider notified?: Yes Primary care physician: Bandar Bermudez - Discharge Diagnosis(es) (1) Hypertension Status: Acute (2) Obesity Status: Acute (3) Atrial flutter Status: Acute Hospital Course: This is a 56 year old female with past medical history of she also has history of hyperlipidemia. Patient presented due to palpitations when she woke up in the morning yesterday. No chest pain, mild shortness of breath was present. She did not have any syncopal episodes, no lightheadedness or dizziness. Patient presented to the emergency center and was found to be a heart rate of 140s with blood pressure 118/83. She was started on Cardizem drip and heparin drip. She has subsequently converted to a sinus rhythm running in the 70s. She was cleared by cardiology and placed on a beta sue and anticoagulation. Patient Condition at Discharge: Serious Plan - Discharge Summary Discharge Rx Participant: Yes New Discharge Prescriptions: New Apixaban [Eliquis] 5 mg PO BID #180 tab Metoprolol Tartrate [Lopressor] 50 mg PO BID #60 tab Continue Multivitamins, Thera [Multivitamin (formulary)] 1 tab PO DAILY Vitamin B Complex 1 tab PO DAILY Atorvastatin Calcium [Lipitor] 20 mg PO HS Zinc Gluconate [Zinc] 50 mg PO DAILY Cholecalciferol [Vitamin D3 (25 Mcg = 1000 Iu)] 25 mcg PO DAILY Omeprazole 40 mg PO W/BRKFST ALPRAZolam [Xanax] 0.25 mg PO TID PRN PRN Reason: Anxiety Venlafaxine HCl ER [Effexor XR] 150 mg PO DAILY Discharge Medication List Atorvastatin Calcium [Lipitor] 20 mg PO HS 06/20/20 [History] Multivitamins, Thera [Multivitamin (formulary)] 1 tab PO DAILY 06/20/20 [History] Vitamin B Complex 1 tab PO DAILY 06/20/20 [History] ALPRAZolam [Xanax] 0.25 mg PO TID PRN 07/13/22 [History] Cholecalciferol [Vitamin D3 (25 Mcg = 1000 Iu)] 25 mcg PO DAILY 07/13/22 [History] Omeprazole 40 mg PO W/BRKFST 07/13/22 [History] Venlafaxine HCl ER [Effexor XR] 150 mg PO DAILY 07/13/22 [History] Zinc Gluconate [Zinc] 50 mg PO DAILY 07/13/22 [History] Apixaban [Eliquis] 5 mg PO BID #180 tab 07/14/22 [Rx] Metoprolol Tartrate [Lopressor] 50 mg PO BID #60 tab 07/14/22 [Rx] Follow up Appointment(s)/Referral(s): Joss Peoples MD [STAFF PHYSICIAN] - 2 Weeks (OFFICE TO CALL YOU WITH APPT TIME) Bandar Bermudez DO [Primary Care Provider] - 1 Week (OFFICE TO CALL YOU WITH APPT TIME) Patient Instructions/Handouts: Atrial Flutter (DC) Discharge Disposition: HOME SELF-CARE
== END 2022-07-14 12:10 | disposition home or self-care (01) | DRG 309 ==
LOC: EC 10:15 → 3SCARD 12:29
PROVIDERS: ADMIT Family Medicine; ATTEND Family Medicine
DX: I48.92 Unspecified atrial flutter (principal); Z68.41 Body mass index [BMI] 40.0-44.9, adult; F41.9 Anxiety disorder, unspecified; I10 Essential (primary) hypertension; K21.9 Gastro-esophageal reflux disease without esophagitis; Z79.01 Long term (current) use of anticoagulants; Z79.899 Other long term (current) drug therapy; Z98.51 Tubal ligation status; I83.90 Asymptomatic varicose veins of unspecified lower extremity
CPT/HCPCS: 36415; 71046; 80048; 80053; 83735; 84443; 84484; 85025; 85610; 85730; 93005; 96365; 96366; 96368; 99285

== ENCOUNTER → 2022-08-10 | Outpatient (CLI) | payer OTHER ==
[2022-08-10 15:21] LABS: HCT 45.2 % (37.2-46.3); HGB 14.5 g/dL (12.0-15.0); MCH 28.9 pg (27.0-32.0); MCHC 32.1 g/dL (32.0-37.0); MCV 90.2 fL (80.0-97.0); NRBC Per 100 WBC 0 /100 WBCS (0.0-0.0); Platelet Count 248 X 10*3/uL (140-440); RBC 5.01 X 10*6/uL (4.10-5.20); RDW 13.8 % (11.5-14.5); WBC 8.64 X 10*3/uL (4.50-10.00)
[2022-08-10 19:24] LABS: African American GFR (CKD) 106.3 (60.0-200.0); Anion Gap 13.9 mmol/L (10.00-18.00); Carbon Dioxide 25.2 mmol/L (20.0-27.5); Non-African American GFR(CKD) 91.7 (60.0-200.0); Potassium 4.5 mmol/L (3.5-5.5)
== END | disposition home or self-care (01) ==
LOC: LABPAT 10:16
PROVIDERS: ATTEND Internal Medicine Clinical Cardiac Electrophysiology
DX: Z01.812 Encounter for preprocedural laboratory examination (principal); I47.1 Supraventricular tachycardia; R07.89 Other chest pain
CPT/HCPCS: 80051; 82565; 85027

== ENCOUNTER → 2022-10-14 | Outpatient (CLI) | payer OTHER ==
--- NOTE | 2022-10-15 09:02 | MM ---
Reason for Exam: Screening (asymptomatic). Last mammogram was performed 1 year(s) and 1 month(s) ago. Patient History: Menarche at age 10. First Full-Term at age 18. Postmenopausal. Risk Values: Rosemarie 5 year model risk: 1.2%. NCI Lifetime model risk: 6.7%. Prior Study Comparison: 08/08/2019 Bilateral Screening Mammogram, [facility]. 09/24/2020 Bilateral Screening Mammogram, [facility]. 10/02/2021 Bilateral Screening Mammogram, [facility]. Tissue Density: The breast tissue is heterogeneously dense. This may lower the sensitivity of mammography. Findings: Analyzed By CAD. There is no suspicious group of microcalcifications or new suspicious mass in either breast. Overall Assessment: Negative, BI-RAD 1 Management: Screening Mammogram of both breasts in 1 year. A clinical breast exam by your physician is recommended on an annual basis and results should be correlated with mammographic findings. Electronically signed and approved by: Dion Ann M.D. Radiologis
== END | disposition home or self-care (01) ==
LOC: RADMAMWWP 16:26
PROVIDERS: ATTEND Obstetrics & Gynecology
DX: Z12.31 Encounter for screening mammogram for malignant neoplasm of breast (principal); Z78.0 Asymptomatic menopausal state
CPT/HCPCS: 77067

== ENCOUNTER → 2023-08-20 | Outpatient (CLI) | payer OTHER ==
--- NOTE | 2023-08-20 13:04 | XR ---
EXAMINATION TYPE: XR chest 2V DATE OF EXAM: 08/20/2023 COMPARISON: 07/13/2022 TECHNIQUE: PA and lateral views submitted. HISTORY: Chest pain FINDINGS: The lungs are clear and there is no pneumothorax, pleural effusion, or focal pneumonia. Heart size normal and no overt failure. Osseous structures demonstrate hypertrophic and degenerative changes of the spine. Biapical pleural thickening. IMPRESSION: 1. No acute process.
== END | disposition home or self-care (01) ==
LOC: RADXRMAIN 12:42
PROVIDERS: ATTEND Family Medicine
DX: R07.9 Chest pain, unspecified (principal)
CPT/HCPCS: 71046

== ENCOUNTER → 2023-09-27 | Outpatient (CLI) | payer OTHER ==
--- NOTE | 2023-09-27 11:07 | CT ---
EXAMINATION TYPE: CT chest w con CT DLP: 841 mGycm, Automated exposure control for dose reduction was used. DATE OF EXAM: 09/27/2023 10:43 AM COMPARISON: Chest radiograph from same day. Multiple CTs of the chest with most recent on . CLINICAL INDICATION:Female, 57 years old with history of R07.9 CHEST PAIN, UNSPECIFIED; right, right- sided chest pain. TECHNIQUE: Multiple axial images were obtained through the chest. Sagittal and coronal reformats were created for review. Contrast used:100 mL of Isovue 370 with IV Contrast (None if empty) Oral contrast used: (None if empty) FINDINGS: LUNGS/ PLEURA: The lung parenchyma appears unremarkable. AIRWAY: Patent and unremarkable. HEART: Size within normal limits. MEDIASTINUM: No gross evidence of adenopathy. VASCULATURE: No aortic aneurysm. MUSCULOSKELETAL: No acute osseous abnormalities SOFT TISSUES/LYMPH NODES: Unremarkable. LOWER NECK: No significant findings. UPPER ABDOMEN: No significant findings. IMPRESSION: Unremarkable exam.
== END | disposition home or self-care (01) ==
LOC: RADCTMAIN 10:07
PROVIDERS: ATTEND Family Medicine
DX: R07.9 Chest pain, unspecified (principal)
CPT/HCPCS: 71260; Q9967

== ENCOUNTER → 2023-10-21 | Outpatient (CLI) | payer OTHER ==
--- NOTE | 2023-10-21 13:32 | BD ---
EXAMINATION TYPE: Axial Bone Density DATE OF EXAM: 10/21/2023 CLINICAL HISTORY: 58 years old Female. ICD-10 CODE: Z78.0 POST MENOPAUSAL Height: 65 Weight: 258 FRAX RISK QUESTIONS: Alcohol (3 or more units per day): no Family History (Parent hip fracture): no Glucocorticoids (More than 3mos): no (Ex: prednisone, prednisolone, methylprednisolone, dexamethasone, and hydrocortisone). History of Fracture in Adulthood: no Secondary Osteoporosis: 1. Type 1 Diabetes: no 2. Hyperthyroidism: no 3. Menopause before 45: no 4. Malnutrition: no 5. Chronic liver disease: no Rheumatoid Arthritis: no Current Tobacco Use: yes RISK FACTORS HISTORY OF: Surgery to Spine/Hip(right/left)/Wrist (right/left): no EXAM MEASUREMENTS: Bone mineral densitometry was performed using the Gravity System. Bone mineral density as measured about the Lumbar spine is: ----- L1-L4(G/cm2): 1.558 T Score Values are as follows: ----- L1: 2.6 ----- L2: 3.3 ----- L3: 3.0 ----- L4: 3.7 ----- L1-L4: 3.1 Z Score Values are as follows: ----- L1: 2.6 ----- L2: 3.3 ----- L3: 3.0 ----- L4: 3.7 ----- L1-L4: 3.2 Bone mineral density : baseline Bone mineral density about the R hip (g/cm2): 1.085 Bone mineral density about the L hip (g/cm2): 1.080 T Score values are as follows: -----R Neck: -0.7 -----L Neck: -0.5 -----R Total: 0.6 -----L Total: 0.6 Z Score values are as follows: -----R Neck: -0.3 -----L Neck: -0.1 -----R Total: 0.7 -----L Total: 0.7 Bone mineral density : baseline FRAX%s: The graph provided illustrates a 5.8% chance for a major osteoporotic fx and a 0.4% chance fo r the hips probability for fx in 10 years time. IMPRESSION: Normal (Values between +1 and -1 indicate normal bone mass). Consider repeating this study in 5 year s or sooner if there is some new clinical indication. NOTE: T-SCORE=SD OF THE YOUNG ADULT MEAN.
--- NOTE | 2023-10-25 10:29 | MM ---
Reason for Exam: Screening (asymptomatic). Last screening mammogram was performed 12 month(s) ago. Patient History: Menarche at age 10. First Full-Term at age 18. Postmenopausal. Risk Values: Rosemarie 5 year model risk: 1.3%. NCI Lifetime model risk: 6.6%. Prior Study Comparison: 12/22/2016 Bilateral Screening Mammogram, [facility]. 02/03/2018 Bilateral Screening Mammogram, [facility]. 08/08/2019 Bilateral Screening Mammogram, [facility]. 09/24/2020 Bilateral Screening Mammogram, [facility]. 10/02/2021 Bilateral Screening Mammogram, [facility]. 10/14/2022 Bilateral MG screening mammo w CAD, [facility]. Tissue Density: There are scattered areas of fibroglandular density. Findings: Analyzed By CAD. There is no suspicious group of microcalcifications or new suspicious mass in either breast. Benign-appearing calcifications. Stable chronic nodularity. Overall Assessment: Benign, BI-RAD 2 Management: Screening Mammogram of both breasts in 1 year. . Patient should continue monthly self-breast exams. A clinical breast exam by your physician is recommended on an annual basis. This exam should not preclude additional follow-up of suspicious palpable abnormalities. Note on Rosemarie scores and lifetime risk: 1. A Rosemarie score greater than 3% is considered moderate risk. If this is the case, consider specialist referral to assess eligibility for a risk reducing agent. 2. If overall lifetime risk for the development of breast cancer is 20% or higher, the patient may qualify for future screening with alternating mammogram and breast MRI. Electronically signed and approved by: Robert Koenig M.D. Radiologis
== END | disposition home or self-care (01) ==
LOC: RADMAMWWP 12:24
PROVIDERS: ATTEND Obstetrics & Gynecology
DX: Z12.31 Encounter for screening mammogram for malignant neoplasm of breast (principal); M85.89 Other specified disorders of bone density and structure, multiple sites; Z78.0 Asymptomatic menopausal state
CPT/HCPCS: 77063; 77067; 77080

== ENCOUNTER → 2024-09-12 | Outpatient (CLI) | payer OTHER ==
--- NOTE | 2024-09-12 14:15 | XR ---
EXAMINATION TYPE: XR chest 2V DATE OF EXAM: 09/12/2024 2:13 PM COMPARISON: Chest radiographs from 08/20/2023 CLINICAL INDICATION: Female, 58 years old with history of M54.50; [facility] TECHNIQUE: XR chest 2V Frontal and lateral views of the chest. FINDINGS: Lungs/Pleura: There is no evidence of pleural effusion, focal consolidation, or pneumothorax. Pulmonary vascularity: Unremarkable. Heart/mediastinum: Cardiomediastinal silhouette is unremarkable. Musculoskeletal: No acute osseous pathology. Other findings: None IMPRESSION: No acute cardiopulmonary disease/process. [facility], , 09/12/2024 2:13 PM
== END | disposition home or self-care (01) ==
LOC: RADXRMAIN 13:42
PROVIDERS: ATTEND Family Medicine
DX: R05.9 Cough, unspecified (principal)
CPT/HCPCS: 71046

== ENCOUNTER → 2025-01-26 | Outpatient (CLI) | payer OTHER ==
--- NOTE | 2025-01-26 11:31 | MM ---
Reason for Exam: Screening (asymptomatic). Last mammogram was performed 1 year(s) and 3 month(s) ago. Patient History: Menarche at age 10. First Full-Term at age 18. Postmenopausal. Risk Values: Rosemarie 5 year model risk: 1.3%. NCI Lifetime model risk: 6.4%. Prior Study Comparison: 10/02/2021 Bilateral Screening Mammogram, [facility]. 10/14/2022 Bilateral MG screening mammo w CAD, [facility]. 10/21/2023 Bilateral MG 3D screening mammo w/cad, [facility]. Tissue Density: There are scattered areas of fibroglandular density. Findings: Analyzed By CAD. There is no suspicious group of microcalcifications or new suspicious mass in either breast. Chronic nodularity Overall Assessment: Benign, BI-RAD 2 Management: Screening Mammogram of both breasts in 1 year. . Patient should continue monthly self-breast exams. A clinical breast exam by your physician is recommended on an annual basis. This exam should not preclude additional follow-up of suspicious palpable abnormalities. Note on Rosemarie scores and lifetime risk: 1. A Rosemarie score greater than 3% is considered moderate risk. If this is the case, consider specialist referral to assess eligibility for a risk reducing agent. 2. If overall lifetime risk for the development of breast cancer is 20% or higher, the patient may qualify for future screening with alternating mammogram and breast MRI. [facility], , 01/26/2025 11:28 AM. Electronically signed and approved by: Robert Koenig M.D. Radiolog[facility]
== END | disposition home or self-care (01) ==
LOC: RADMAMWWP 11:10
PROVIDERS: ATTEND Family Medicine
DX: Z12.31 Encounter for screening mammogram for malignant neoplasm of breast (principal); R92.323 Mammographic fibroglandular density, bilateral breasts; Z78.0 Asymptomatic menopausal state
CPT/HCPCS: 77067